=== PATIENT | female | born 1955 | race Caucasian/White ===

== ENCOUNTER 2017-10-19 10:27 | Inpatient (IN) | payer OTHER ==
--- NOTE | 2017-10-06 11:40 | HP ---
HISTORY AND PHYSICAL: DATE OF ADMISSION: 10/19/17 SURGEON: Laura Fofana MD * (DICTATED BY DANAE HERNANDEZ) PROCEDURE: Revision left total knee arthroplasty. CHIEF COMPLAINT: Left knee pain. HISTORY OF PRESENT ILLNESS: Ms. Bai is a 62-year-old female with continued complaints of a painful left total knee arthroplasty. She had it done approximately a year ago. She has had continued pain. She has failed conservative treatment and elected to proceed with revision of a left total knee arthroplasty. PAST MEDICAL HISTORY: Hypertension, hypothyroidism, hepatitis B in 1978, hepatitis C in 2004, GERD. PAST SURGICAL HISTORY: Left total knee arthroplasty; lumpectomy; tonsillectomy ; right arm ORIF with removal of hardware, right arm. CURRENT MEDICATIONS: 1. She is on levothyroxine 175 mcg daily. 2. Valsartan/hydrochlorothiazide 80/12.5 mg daily. 3. Sertraline 50 mg daily. 4. Oxybutynin chloride 5 mg twice a day. 5. Tramadol 50 mg every 6 hours as needed. 6. Flexeril 10 mg every 8 hours as needed. 7. Omeprazole daily. 8. Vitamin B12. 9. Calcium. 10. Potassium. 11. Vitamin D. 12. Vitamin C. 13. Trazodone 100 mg q.h.s. as needed. ALLERGIES: BACTRIM and DIFLUCAN. FAMILY HISTORY: Leukemia, COPD, heart disease, and prostate cancer. SOCIAL HISTORY: She is a 62-year-old female. Lives with her daughter. She does not smoke, use drugs or alcohol. REVIEW OF SYSTEMS: A complete 14-point review of systems was reviewed with the patient. It was positive for GERD, hypothyroidism, hepatitis B, hepatitis C, and vertigo. She denies history of DVT, PE, or anesthesia problems. PHYSICAL EXAMINATION GENERAL: Well developed, well nourished, in no acute distress. VITAL SIGNS: She stands 65 inches tall, weighs 165 pounds. Her blood pressure is 112/72 and her heart rate is 84. HEENT: Normocephalic, atraumatic. NECK: Supple. No palpable lymph nodes. PULMONARY: The lungs are clear to auscultation bilaterally. CARDIO: Regular rate and rhythm. Strong S1 and S2. ABDOMEN: Soft, nontender, and nondistended. MUSCULOSKELETAL: Left lower extremity, the skin is intact. There is a well- healed anterior incision. No signs of infection. She has a moderate joint effusion. Range of motion is 15 to 125 degrees of flexion. There is some patellofemoral maltracking. 5/5 lower extremity strength. 2+ dorsalis pedis pulses and intact sensation. NEUROLOGICAL: She is alert and oriented x3. ASSESSMENT AND PLAN: Ms. Bai is a 62-year-old female with a painful left total knee arthroplasty. She has elected to proceed with a revision of the left total knee arthroplasty, which is scheduled for 10/19/[address] Fofana discussed the risks and the benefits of surgery at today's visit and all of her questions were answered. She will follow up with Dr. Fofana 2 weeks after the surgery. DANAE HERNANDEZ [id number]/[facility] #: [id number] [place]
[~2017-10-19 10:27] MED LIST: Acetaminophen TAB* 325 MG PO ONE; Buffered Lidocaine 0.9% SYRIN* 5 ML/SYR SYRINGE INTRADERM ONE; Bupivacaine 0.5% PF 10 ML VIAL INJ ONE; Gabapentin CAP(*) 300 MG PO ONE; celeCOXIB CAP* 100 MG PO ONE; celeCOXIB CAP* 200 MG PO ONE
[2017-10-19] MEDS ORDERED: fentaNYL* 50 MCG/ML 2 ML VIAL (100 MCG VIAL) ONE ×5 (10:35→16:47)
[2017-10-19] MEDS ORDERED: Midazolam* 1 MG/ML 2 ML VIAL (2 MG) ONE (10:36)
[2017-10-19] MEDS ORDERED: Gabapentin CAP(*) 300 MG ONE (11:30)
[2017-10-19] MEDS ORDERED: Acetaminophen TAB* 325 MG ONE (11:30)
[2017-10-19] MEDS ORDERED: celeCOXIB CAP* 100 MG ONE (11:30)
[2017-10-19] MEDS ORDERED: ceFAZolin 2 GM PREMIX (*) 2 GM/50 ML BAG IVPB ONE (11:31)
[2017-10-19] MEDS ORDERED: Buffered Lidocaine 0.9% SYRIN* 5 ML/SYR SYRINGE ONE (11:31)
[2017-10-19] MEDS ORDERED: Tranexamic Acid 1,000 MG/10 ML SDV IV ONE ×2 (11:31→12:15)
[2017-10-19] MEDS ORDERED: Cisatracurium* 2 MG/ML MDV 5 ML ONE (12:23)
[2017-10-19] MEDS ORDERED: Bupivacaine 0.5% PF 10 ML VIAL INJ ONE (13:04)
[2017-10-19] MEDS ORDERED: HYDROmorphone INJ* 0.5 MG/0.5 ML SYRINGE ONE ×3 (13:13→17:36)
[2017-10-19] MEDS ORDERED: Labetalol IV* 5 MG/ML 20 ML VIAL ONE (13:15)
[2017-10-19] MEDS ORDERED: Dexmedetomidine* 200 MCG/2 ML 2 ML VIAL ONE (13:22)
[2017-10-19] MEDS ORDERED: Hetastarch 6% in NS* 500 ML IV ONE (14:27)
[2017-10-19] MEDS ORDERED: Succinylcholine* 20 MG/ML 10 ML VIAL ONE (15:26)
[2017-10-19] MEDS ORDERED: Famotidine IV* 10 MG/ML 2 ML (20 mg) ONE (15:26)
[2017-10-19] MEDS ORDERED: Dexamethasone IV* 4 MG/ML 1 ML (4 MG) ONE (15:26)
[2017-10-19] MEDS ORDERED: Propofol* 10 MG/ML 20 ML BTL IV PUSH ONE (15:26)
[2017-10-19] MEDS ORDERED: Lidocaine 2% PF * 5 ML VIAL ONE (15:26)
[2017-10-19] MEDS ORDERED: HYDROcodone/ACETAMIN 5-325 MG* 1 TAB PO PRN ×2 (15:33)
[2017-10-19] MEDS ORDERED: PROCHLORPERAZINE INJ 5 MG/ML 2 ML VIAL IV PRN (15:33)
[2017-10-19] MEDS ORDERED: DiMENhydriNATE IV* 50 MG/ML VIAL IV PUSH PRN (15:33)
[2017-10-19] MEDS ORDERED: fentaNYL* 50 MCG/ML 2 ML VIAL (100 MCG VIAL) IV PRN (15:33)
[2017-10-19] MEDS ORDERED: Naloxone* 0.4 MG/ML 1 ML VIAL IV PRN (15:33)
[2017-10-19] MEDS ORDERED: Ondansetron ODT TAB* 4 MG PO PRN (15:33)
[2017-10-19] MEDS ORDERED: Ondansetron INJ* 2 MG/ML VIAL IV PRN ×2 (15:33→16:19)
[2017-10-19] MEDS ORDERED: Nalbuphine* 10 MG/ML 1 ML VIAL IV PRN (15:33)
[2017-10-19] MEDS ORDERED: Acetaminophen TAB* 325 MG PO PRN ×2 (15:33→16:19)
[2017-10-19] MEDS ORDERED: diPHENhydraMINE IV* 50 MG/ML 1 ml VIAL (BENADRYL) IV PRN ×2 (15:33→16:19)
[2017-10-19] MEDS ORDERED: Ketorolac INJ* 30 MG/ML 1 ML VIAL ONE (15:38)
[2017-10-19] MEDS ORDERED: Bisacodyl SUPP* 10 MG SUPP PR PRN (16:19)
[2017-10-19] MEDS ORDERED: oxyCODONE/Acetamin 5/325 MG* TAB PO PRN (16:19)
[2017-10-19] MEDS ORDERED: Morphine VIAL* 4 MG/ML VIAL (1 ml vial) IV PRN (16:19)
[2017-10-19] MEDS ORDERED: Ondansetron TAB* 4 MG PO PRN (16:19)
[2017-10-19] MEDS ORDERED: Magnesium Hydroxide LIQ* 30 ML UDC PO PRN (16:19)
[2017-10-19] MEDS ORDERED: Polyethylene Glycol 3350* 17 GM PACKET PO PRN (16:19)
[2017-10-19] MEDS ORDERED: HYDROcodone/ACETAMIN 5-325 MG* 1 TAB ONE (16:47)
[2017-10-19] MEDS ORDERED: ceFAZolin 1 GM in Dextrose (*) 1 GM/50 ML BAG IVPB SCH (17:00)
[2017-10-19] MEDS ORDERED: Warfarin TAB(*) 6 MG PO ONE (17:00)
[2017-10-19] MEDS: fentaNYL* 50 MCG/ML 2 ML VIAL (100 MCG VIAL) IV PRN ×3 (17:07→17:35)
--- NOTE | 2017-10-19 17:18 | RAD ---
INDICATION: Left total knee arthroplasty revision COMPARISON: Intraoperative fluoroscopy from the same date TECHNIQUE: 3 view radiograph of the left knee. FINDINGS: The left knee prosthesis is anatomically aligned. Expected postsurgical changes include subcutaneous gas. There is a knee brace overlying the knee. IMPRESSION: Anatomic alignment of left knee prosthesis.
[2017-10-19] MEDS: HYDROmorphone INJ* 0.5 MG/0.5 ML SYRINGE IV PRN ×3 (17:21→17:37)
[2017-10-19] MEDS: traZODone TAB* 100 MG PO SCH (19:23)
[2017-10-19] MEDS: Cyclobenzaprine TAB* 10 MG PO PRN (19:23)
[2017-10-19] MEDS: oxyCODONE/Acetamin 5/325 MG* TAB PO PRN (19:24)
--- NOTE | 2017-10-19 20:44 | RAD ---
CPT II Codes: G9500 INDICATION: Revision of left total knee arthroplasty TECHNIQUE: Intraoperative fluoroscopy was provided during revision of total left knee arthroplasty. FINDINGS: 2 spot films depict anatomic alignment of left knee prostheses. Fluoroscopy time: 13.1 seconds IMPRESSION: As above.
[2017-10-19] MEDS: Docusate CAP* 100 MG PO SCH (22:05)
[2017-10-19] MEDS: Oxybutynin TAB* 5 MG PO SCH (22:05)
[2017-10-19] MEDS: ceFAZolin 1 GM in Dextrose (*) 1 GM/50 ML BAG IVPB SCH (22:07)
[2017-10-19] MEDS: Magnesium Hydroxide LIQ* 30 ML UDC PO SCH (22:08)
[2017-10-20] MEDS: oxyCODONE/Acetamin 5/325 MG* TAB PO PRN ×5 (00:11→21:28)
--- NOTE | 2017-10-20 01:57 | CONS ---
CC: Dr. Fofana; Dr. Nuñez, [facility]* CONSULTATION REPORT: DATE OF ADMISSION: 10/19/17. DATE OF CONSULT: 10/19/17. PRIMARY CARE PROVIDER: Dr. Nuñez from [facility]. REQUESTING PHYSICIAN IN CONSULT: Dr. Fofana. ATTENDING PHYSICIAN WHILE IN THE HOSPITAL: Dr. Suhas Magdaleno (report is being dictated by Ga Hewitt NP). REASON FOR MEDICAL CONSULTATION: Evaluation and medical management of comorbid medical conditions. HISTORY OF PRESENT ILLNESS: I refer you to Dr. Fofana's H and P dictated for further details. In short, Mrs. Bai is a 62-year-old female patient. She has a history of hypertension, hypothyroidism, GERD, hepatitis B, and hepatitis C. She is presenting to Dr. Fofana's services today because she, about a year ago, had underwent a left total knee replacement, but despite this she has had significant pain to the left knee. She has failed conservative therapy and has sought care with Dr. Fofana and she elected to undergo a left total knee revision , which she underwent today. But because of her medical complexity, we were asked to evaluate in consult. The patient was evaluated in the PACU. She said she is feeling well. She does state that she feels drowsy. She denies having any chest pain. She denies having any shortness of breath. She says she does not feel lightheaded or dizzy. She denies feeling nausea. Denies having any abdominal discomfort. She said that although she is having some pain in that left knee, but it is well controlled at this point with p.r.n. pain medications. Because of her medical complexities, we were asked to evaluate for her in consult. PAST MEDICAL HISTORY: Significant for: 1. Hypertension. 2. Hypothyroidism. 3. Hepatitis B. 4. Hepatitis C. 5. GERD. PAST SURGICAL HISTORY: 1. She has had a left total knee arthroplasty. 2. She has had a left total knee revision done today. 3. She has had a lumpectomy, which was benign. 4. Tonsillectomy. 5. Right arm ORIF with removal of hardware. MEDICATIONS: Home meds according to preop include: 1. Vitamin B12 5000 units p.o. daily. 2. Valsartan/hydrochlorothiazide 1 tablet daily. 3. Trazodone 1 tablet at bedtime. 4. Tramadol 1 tablet p.o. t.i.d. as needed. 5. Zoloft 1 tablet in the morning. 6. Potassium 1 tablet p.o. daily. 7. Oxybutynin 5 mg p.o. b.i.d. 8. Omeprazole 1 capsule p.o. daily. 9. Meclizine 1 tablet every 8 hours as needed. 10. Magnesium 1 tablet p.o. daily. 11. Synthroid 1 tablet p.o. daily. 12. Flexeril 1 tablet t.i.d. as needed. 13. Vitamin D3 one tablet p.o. daily. 14. Calcium 600 mg daily. 15. Vitamin C one tablet p.o. daily. ALLERGIES TO MEDICATIONS: Include BACTRIM and DIFLUCAN. FAMILY HISTORY: Mother had a history of leukemia. Father had a history of COPD. SOCIAL HISTORY: She does not smoke. She does not drink. Surrogate decision maker is her daughter, Deysi. REVIEW OF SYSTEMS: There is no documented fevers. She denies having any significant weight change. She denies having any abdominal discomfort. There is no ear discharge. No rhinorrhea. No sore throat. No thyroid enlargement. She denies having any chest pain. There is no orthopnea. There is no nocturnal dyspnea. She denies having any abdominal discomfort. There is no dysuria. No frequency. No seizure. No loss of consciousness. No pruritus and no skin ulcerations. Review of 14 systems was completed, all others are negative. PHYSICAL EXAM: Vital Signs: Blood pressure 112/62, pulse 74, respirations were 14, O2 sat 96% on 3 L, temperature 97.0. Generally, at this time, Mrs. Bai is a 62-year-old female patient. She is sitting in the PACU bed. She does not appear to be in any acute distress. HEENT: Head: Atraumatic, normocephalic. Eyes: EOMs are intact. Sclerae anicteric and not pale. Neck was supple. Throat: Oral mucosa appears to be moist. No oropharyngeal erythema. Heart: Sounds S1, S2. Regular rate and rhythm. No murmurs, rubs, or gallops. Lungs were clear to auscultation. No wheezes, rales, or rhonchi. Abdomen was soft and was flat. It was nontender. Bowel sounds hypoactive. Extremities: Pulses were 2+ throughout. She has limited range of motion to the left lower extremity consistent with the operative leg. The distal CSM checks were intact. Neurologically, the patient is awake. She is alert. She is oriented x3. The tongue is midline. Route Cdl Driver were equal. She had no gross focal deficits. Skin is intact. DIAGNOSTIC STUDIES/LAB DATA: Preop, WBC of 8.0, RBC of 4.52, hemoglobin of 14.3 , hematocrit of 41, platelet count 224. The INR was 0.94. The sodium 138, potassium 3.8, chloride of 101, bicarb 28, BUN 17, creatinine 0.79, glucose 84, AST 17, ALT 14. Urine was obtained and was preoperatively again negative. She did have a preop chest x-ray, which revealed no active cardiopulmonary disease. She also had a preoperative EKG as well, which showed normal sinus rhythm, rate of 67. No ST elevations or T-wave inversions were noted. Old medical records were reviewed. ASSESSMENT AND PLAN: Mrs. Bai is a 62-year-old female patient coming in to the orthopedic services today for an elective left total knee revision. We were asked to evaluate in consult. Recommendations at this point are: 1. Status post left total knee revision. I will defer the management to Dr. Fofana and her team. 2. Hypertension. Postoperatively, she has been running in the 110s. We will go ahead and hold her hydrochlorothiazide and Diovan. We will restart when able. We will monitor. 3. History of hepatitis C and hepatitis B. Follow with her PCP. 4. History of hypothyroidism. Continue her Synthroid. 5. History of depression. Continue with her Zoloft. 6. Gastroesophageal reflux disease. Continue PPI therapy and supportive care. 7. History of overactive bladder. Continue with her oxybutynin. 8. Code status: She is a full code. 9. Fluids, electrolytes and nutrition: I would recommend a regular diet. 10. DVT prophylaxis: I will defer to the primary team. TIME SPENT: Time spent on the consult 60 minutes; greater than half the time was spent [id number] with the patient obtaining my history and physical, other half of the time spent going over the plan of care with the patient and implementing plan of care. I did discuss the plan of care with my attending, Dr. Magdaleno; he is in agreement. AG HEWITT NP [id number]/[facility] #: [id number] [place]
[2017-10-20] MEDS: Cyclobenzaprine TAB* 10 MG PO PRN ×2 (03:39→12:46)
[2017-10-20 05:49] LABS: Hematocrit 30 % (35-47); Hemoglobin 10.4 g/dl (12.0-16.0); Mean Platelet Volume 8.5 um3 (7.4-10.4); Platelet Count 163 10^3/ul (150-450)
[2017-10-20 05:55] LABS: INR 1.07 (0.77-1.02)
[2017-10-20] MEDS: Levothyroxine TAB* 175 MCG TAB PO SCH (06:04)
[2017-10-20] MEDS: ceFAZolin 1 GM in Dextrose (*) 1 GM/50 ML BAG IVPB SCH ×2 (06:05→13:47)
[2017-10-20 06:06] LABS: EGFR Non-African American 103.3 (>60)
--- NOTE | 2017-10-20 07:42 | OP ---
OPERATIVE REPORT: DATE OF OPERATION: 10/19/17 - Inpatient, room SSU 342-02. DATE OF : 55 SURGEON: Laura Fofana MD ENGINEERING OFFICER: DANAE Liriano Ms. did help throughout the procedure with preparation of the leg, wound retraction, manipulation of the knee and wound closure. ANESTHESIOLOGIST: Dr. Schafer. ANESTHESIA: General. PRE-OP DIAGNOSIS: Painful left total knee arthroplasty with tibial baseplate loosening and flexion contracture. POST-OP DIAGNOSIS: Painful left total knee arthroplasty with tibial baseplate loosening and flexion contracture. OPERATIVE PROCEDURE: Left total knee arthroplasty revision of both femoral and tibial components. TOURNIQUET TIME: 81 minutes. COMPLICATIONS: None. SPECIMEN: Explanted hardware sent to Pathology. Multiple culture swabs and soft tissue sent to Microbiology for cultures and sensitivities. Frozen section was also sent at the beginning of the case and was noted to have no signs of active inflammation or infection. HARDWARE USED: This is the DePuy cemented revision total knee arthroplasty implants. Two packages of Simplex cement with tobra was used. For the femur, a cemented TC3 size 3 left femur with an adapter bolt in neutral. Two distal augments both medial and lateral were 4 mm. A universal fluted stem 75 x 12 mm was used. For the tibial implant, MBT revision tibial tray rotating platform system cemented size 2.5 with a 45 mm MBT revision metaphyseal sleeve. Stem was a universal stem fluted 75 x 10 mm. For the insert, a rotating platform TC3 tibial insert size 3, 12.5 mm. BRIEF HISTORY/INDICATIONS: The patient is a 62-year-old female who had injured her left knee in 2011 working at [employer]. She initially had arthroscopy and eventually left total knee arthroplasty with Dr. España in [place] in August 2016. Postoperatively, the patient denies any postop infection. She had stiffness and lacked at least 20 degrees from full extension. She had chronic pain. She had chronic effusions and difficulty walking. The patient had lab work, which did not indicate infection. On her radiograph, I felt there was some mild tibial loosening and bone scan did support this. Due to the patient's pain and contracture, she wished to undergo revision surgery. Patient and I discussed at length the fact that revision surgery at age 62 would be high risk for complications including but not limited to bleeding, infection, damage to nearby structures, continued pain, need for further surgery, intraoperative fracture, nerve palsy, failure of the hardware or loosening of the hardware, continued knee stiffness, loss of motion, stroke, heart attack, blood clot, and . She wished to proceed. INTRAOPERATIVE FINDINGS: Intraoperatively, the patient had some serosanguineous joint fluid. This was collected and sent to Microbiology. The tibial tray was not grossly loose. The medial tibial tray platform did have some obvious osteolysis. Posteromedial tibia had significant amount of bone loss once the implant was removed. To begin the case, the patient had 25 degrees flexion contracture with flexion to 130 degrees. DESCRIPTION OF PROCEDURE: Ms. Bai was identified in the preanesthesia unit. Her left lower extremity was marked as the correct operative side. Informed consent was signed and placed in the chart. The patient was taken to the operating room and placed under general anesthesia. A Conde catheter was placed. A tourniquet was placed on the left thigh. Left lower extremity was prepped and draped in the usual sterile fashion. Preop time-out was made to correctly identify the patient's side and site. Appropriate perioperative antibiotics were given within 1 hour of incision. Tourniquet was inflated until tourniquet time was 81 minutes. Patient's prior midline incision was opened with a 10 blade. Careful dissection down to the extensor mechanism was performed. A new 10 blade was used to make a standard medial parapatellar arthrotomy. There was some serosanguineous joint fluid and this was collected and sent to Microbiology. Multiple culture swabs were obtained. Soft tissue was obtained and sent for frozen section to ensure there was no active infection. Prior labs had all been normal and without any indication of infection. Any fibrous tissue and scar tissue was carefully removed from around the inside capsule and patellar tendon. The knee was flexed. Electrocautery was used to subperiosteally elevate soft tissue off the superomedial tibia. The polyethylene was carefully removed. The small microsagittal saw was then used to meticulously break the interface between the hardware and cement along the femoral component. There was no obvious loosening here. Thin and rigid osteotomes were also used in a systematic fashion to break the interface between the cement and hardware. A bone tamp was then used to carefully remove the femoral component. Very little bone remained on the femoral implant. There was some osteolysis around the lateral femoral condyle region. Next, the tibia was subluxed anteriorly. It was noted that there was some loosening along the medial tibial baseplate, but the lateral tibial baseplate was solid and intact. The microsagittal saw as well as the rigid and flexible osteotomes were used to systematically loosen the interface between the hardware and cement. Bone tamp was used to elevate the tibial tray. The tibial tray was carefully removed. There was some significant osteolysis along the posteromedial tibial region. Decision was made to use a metaphyseal sleeve because of the posteromedial tibial bone loss. Hand reaming up to size 10 was performed in the tibial canal. Next, sequential broaching with metaphyseal sleeve broaches was performed up to size 45. 45 metaphyseal sleeve broach had excellent fit and stability. A cleanup cut was made on the top of the broach. The tibia was sized to a size 2.5. The proximal opening reamer was placed down the canal. A size 2.5 tibial tray trial with a 45 metaphyseal sleeve trial and a 75 x 10 stem trial was placed. This was impacted into position and had excellent fit. Next, attention was turned to preparation of the femur. Tourniquet was turned down at 60 minutes. It was reinflated for cementing. Hand reaming was performed up to a size 12. The distal cutting block sized the distal femur to a size 3. Size 3 distal cutting block was used to make any cleanup cuts. It was decided that there would be distal augments both medially and laterally of 4 mm. The appropriate jig was used to cut the box for the TC3 femoral implants. A trial size 3 TC3 femoral implant side left was chosen with a neutral adapter bolt and a 75 x 12 mm fluted stem. This trial was carefully impacted on to the distal femur and had good fit. A 12.5 insert trial was placed and the knee was brought into full extension. The knee had full extension. There was good medial and lateral ligamentous balancing. The patella was inspected at this point. The patella was stable and in a good position. Patellofemoral tracking was without abnormality. Any fibrous tissue around the patella was carefully removed. Tourniquet was reinflated. All trials were carefully removed. The bony surfaces were copiously irrigated with sterile saline and dried. Two packages of Simplex cement with tobramycin was used to cement in the final implants. The tibia was cemented in first followed by the femur. A 12.5 mm insert trial was placed and the knee was brought into full extension. Tourniquet was turned down at 81 minutes. Once the cement had fully cured, any excess cement was carefully removed from around the capsule and implants. The knee was copiously irrigated with sterile saline. Electrocautery was used to obtain meticulous hemostasis. Final insert chosen was a sigma tibial insert rotating platform TC3 size 3, 12.5 mm. This was locked into position and the knee was taken through range of motion. The knee had full extension to 130 degrees of flexion. The knee was copiously irrigated with sterile saline once again. The extensor mechanism was closed using interrupted #1 Vicryl. The rest of the incision was closed in a layered fashion using 0 and 2-0 Vicryl. Skin was closed using running 3-0 nylon suture. Sterile Xeroform, 4x4s, and Webril were used to cover the incision. Patient's anesthesia was reversed without difficulty. She was taken to the PACU in stable condition. Intended weightbearing will be weightbearing as tolerated. Intended DVT prophylaxis will be Coumadin with a Lovenox bridge. [id number]/[facility] #: [id number] [place]
[2017-10-20] MEDS: oxyCODONE TAB* 5 MG TAB PO PRN ×4 (08:47→23:29)
[2017-10-20] MEDS ORDERED: HCTZ PO SCH (09:00)
[2017-10-20] MEDS ORDERED: VALSARTAN PO SCH (09:00)
--- NOTE | 2017-10-20 09:05 | PN ---
Progress Note - Progress Note Date of Service: 10/20/17 SOAP: Subjective: Ms. Bai is a 62 yo female POD#1 s/p revision of left TKA on 10/19/[address] Fofana. She is seen with daughter, who lives with patient. Patient sitting comfortably in chair. States less pain than prior to surgery. She and daughter are concerned about pain management after discharge as well as ability to ambulate. She did well with PT this morning but would like to progress further before discharge. No CP, SOB, FIGUEROA, calf pain, numbness, tingling, nausea/vomiting. Objective: Vital Signs Temp 98.2 F 10/20/17 07:18 Pulse 70 10/20/17 07:18 Resp 16 10/20/17 08:47 BP 111/48 10/20/17 07:18 Pulse Ox 98 10/20/17 07:18 Intake & Output 10/19/17 10/20/17 10/20/17 18:59 06:59 18:59 Intake Total 3000 1400 546 Output Total 125 820 Balance 2875 580 546 Intake: IV Fluids 2500 990 371 LR 990 371 lr 2500 IVPB 50 55 ABX - CEFAZOLIN 50 55 Oral 360 120 Plasma Expanders Amount 500 Output: Conde 125 820 Other: # Bowel Movements 0 Laboratory Results - last 24 hr 10/20/17 10/20/17 10/20/17 05:20 05:20 05:20 Hgb 10.4 L Hct 30 L Plt Count 163 MPV 8.5 INR (Anticoag Therapy) 1.07 H Sodium 137 Potassium 4.3 Chloride 105 Carbon Dioxide 29 Anion Gap 3 BUN 14 Creatinine 0.59 Est GFR ( Amer) 125.0 Est GFR (Non-Af Amer) 103.3 BUN/Creatinine Ratio 23.7 H Glucose 144 H Calcium 8.0 L General: WN, WD, NAD LLE: Dressing C/D/I. No erythema, ecchymosis, or warmth proximal or distal to dressing. Thigh soft with slight tenderness, mild edema. Calf soft, non-tender. +DF/PF, 2+ DP pulse, SITLT. Assessment: Ms. Bai is a 62 yo female POD#1 s/p revision of left TKA on 10/19/[address] Fofana. Plan: - Continue PT/OT - Continue current pain regiment - DVT prophylaxis with Lovenox/Coumadin. INR today 1.07 after 6 mg coumadin. 6 mg Coumadin tonight. - Plan to d/c home tomorrow if pain better controlled and continues to progress with PT.
[2017-10-20] MEDS: Sertraline* 50 MG TAB PO SCH (09:27)
[2017-10-20] MEDS: Docusate CAP* 100 MG PO SCH ×2 (09:27→21:29)
[2017-10-20] MEDS: Magnesium Hydroxide LIQ* 30 ML UDC PO SCH ×2 (09:27→21:30)
[2017-10-20] MEDS: Omeprazole CAP* 20 MG PO SCH (09:27)
[2017-10-20] MEDS: Oxybutynin TAB* 5 MG PO SCH ×2 (09:28→21:29)
[2017-10-20] MEDS: Enoxaparin(*) 30 MG/0.3 ML SYR SUBCUT SCH (12:47)
[2017-10-20] MEDS ORDERED: Warfarin TAB(*) 6 MG PO ONE (17:00)
--- NOTE | 2017-10-20 17:11 | PN ---
Subjective Date of Service: 10/20/17 Interval History: Patient seen and examined at bedside. Denies fever, chills, shortness of breath , chest discomfort, N/V/D. Pt states that she is having a fair amount of pain. Family History: Unchanged from Admission Social History: Unchanged from Admission Past Medical History: Unchanged from Admission Objective Active Medications: Acetaminophen (Tylenol Tab*) 650 mg PO Q4H PRN Reason: PAIN OR TEMPERATURE Bisacodyl (Dulcolax Supp*) 10 mg [place] DAILY PRN Reason: constipation Cyclobenzaprine HCl (Flexeril Tab*) 10 mg PO TID PRN Reason: SPASMS Diphenhydramine HCl (Benadryl Iv*) 12.5 mg IV Q6H PRN Reason: PRURITIS Docusate Sodium (Colace Cap*) 100 mg PO BID REGINALD Enoxaparin Sodium (Lovenox(*)) 30 mg SUBCUT Q24H REGINALD Lactated Ringer's (Lactated Ringers 1000 Ml Bag*) 1,000 mls @ 100 mls/hr IV PER RATE REGINALD Lactulose (Lactulose*) 30 ml PO Q6H PRN Reason: constipation Levothyroxine Sodium (Synthroid Tab*) 175 mcg PO QAM@0600 REGINALD Magnesium Hydroxide (Milk Of Magnesia Liq*) 30 ml PO BID REGINALD Magnesium Hydroxide (Milk Of Magnesia Liq*) 30 ml PO Q6H PRN Reason: constipation Morphine Sulfate (Morphine Vial*) 2 mg IV Q2H PRN Reason: PAIN Omeprazole (Prilosec Cap*) 20 mg PO QAM REGINALD Ondansetron HCl (Zofran Inj*) 4 mg IV Q6H PRN Reason: nausea Ondansetron HCl (Zofran Tab*) 4 mg PO Q6H PRN Reason: NAUSEA Oxybutynin Chloride (Ditropan Tab*) 5 mg PO BID REGINALD Oxycodone HCl (Roxycodone Tab*) 10 mg PO Q4H PRN Reason: SEVERE PAIN Oxycodone/Acetaminophen (Percocet 5/325 Tab*) 2 tab PO Q4H PRN Reason: PAIN Oxycodone/Acetaminophen (Percocet 5/325 Tab*) 1 tab PO Q4H PRN Reason: PAIN Pharmacy Profile Note (Coumadin Daily Reminder*) 0 note FOLLOW UP 1700 REGINALD Polyethylene Glycol/Electrolytes (Miralax*) 17 gm PO DAILY PRN Reason: Constipation Sertraline HCl (Zoloft*) 50 mg PO QAM [facility] Trazodone HCl (Desyrel Tab*) 100 mg PO QPM [facility] Vital Signs - 8 hr 10/20/17 10/20/17 10/20/17 09:30 10:50 10:54 Temperature Pulse Rate Respiratory 16 16 16 Rate Blood Pressure (mmHg) O2 Sat by Pulse 98 Oximetry 10/20/17 10/20/17 10/20/17 11:10 12:46 12:57 Temperature 98.1 F Pulse Rate 77 Respiratory 16 16 16 Rate Blood Pressure 131/47 (mmHg) O2 Sat by Pulse 96 Oximetry 10/20/17 10/20/17 10/20/17 14:50 15:40 17:03 Temperature Pulse Rate Respiratory 16 16 16 Rate Blood Pressure (mmHg) O2 Sat by Pulse Oximetry Oxygen Devices in Use Now: None Appearance: NAD, sitting up in bed Ears/Nose/Mouth/Throat: Mucous Membranes Moist Respiratory: Symmetrical Chest Expansion and Respiratory Effort, Clear to Auscultation Cardiovascular: NL Sounds; No Murmurs; No JVD, RRR Abdominal: NL Sounds; No Tenderness; No Distention Extremities: No Edema Skin: - - Dressing to left knee clean, dry and intact Neurological: Alert and Oriented x 3, NL Muscle Strength and Tone Lines/Tubes/Other Access: Clean, Dry and Intact Peripheral IV - site benign Nutrition: Taking PO's Result Diagrams: 10/20/17 05:20 10/20/17 05:20 Microbiology and Other Data: Microbiology 10/19/17 13:10 Anaerobic Culture - Preliminary Wound - Knee Left No Growth Day 1 10/19/17 13:10 Gram Stain - Final Knee Left Wound Culture - Preliminary No Growth Day 1 Assess/Plan/Problems-Billing Assessment: - Patient Problems (1) Status post revision of total replacement of left knee Code(s): Z96.652 - PRESENCE OF LEFT ARTIFICIAL KNEE JOINT SNOMED Code(s): 838701598263148 Comment: - POD #1, Management per Ortho - Trend HH - Continue bowel regimen and pain control (2) HTN (hypertension) Code(s): I10 - ESSENTIAL (PRIMARY) HYPERTENSION SNOMED Code(s): 13190318 Comment: - SBP 100-130's - Continue to hold Diovan and HCTZ, will resume in the AM if able (3) Hypothyroidism Code(s): E03.9 - HYPOTHYROIDISM, UNSPECIFIED SNOMED Code(s): 86522390 Comment: - Continue Synthroid (4) Depression Code(s): F32.9 - MAJOR DEPRESSIVE DISORDER, SINGLE EPISODE, UNSPECIFIED SNOMED Code(s): 52386106 Comment: - Continue Zoloft (5) GERD (gastroesophageal reflux disease) Code(s): K21.9 - GASTRO-ESOPHAGEAL REFLUX DISEASE WITHOUT ESOPHAGITIS SNOMED Code(s): 224616349 Comment: - Continue PPI (6) OAB (overactive bladder) Code(s): N32.81 - OVERACTIVE BLADDER SNOMED Code(s): 655227459 Comment: - Continue oxybutynin (7) History of hepatitis Code(s): Z86.19 - PERSONAL HISTORY OF OTHER INFECTIOUS AND PARASITIC DISEASES SNOMED Code(s): 216335139 Comment: - Hep C and B - Continue to follow with PCP (8) DVT prophylaxis Code(s): WPT0041 - SNOMED Code(s): 191964776 Comment: - Lovenox bridge to warfarin per Ortho (9) Full code status Code(s): Z78.9 - OTHER SPECIFIED HEALTH STATUS SNOMED Code(s): 912152925 Status and Disposition: Inpatient. Disposition per Orthopedic Surgery. Thank you for this consultation, we will continue to follow along.
[2017-10-20] MEDS: traZODone TAB* 100 MG PO SCH (21:30)
[2017-10-21] MEDS: oxyCODONE/Acetamin 5/325 MG* TAB PO PRN ×3 (01:41→13:47)
[2017-10-21] MEDS: Cyclobenzaprine TAB* 10 MG PO PRN ×2 (01:43→11:12)
[2017-10-21] MEDS: oxyCODONE TAB* 5 MG TAB PO PRN ×2 (03:35→08:21)
[2017-10-21] MEDS: Levothyroxine TAB* 175 MCG TAB PO SCH (05:44)
[2017-10-21 06:15] LABS: Hematocrit 32 % (35-47); Hemoglobin 11.2 g/dl (12.0-16.0); Mean Platelet Volume 8.8 um3 (7.4-10.4); Platelet Count 192 10^3/ul (150-450)
[2017-10-21 06:23] LABS: INR 1.37 (0.77-1.02)
[2017-10-21] MEDS: Oxybutynin TAB* 5 MG PO SCH (08:20)
[2017-10-21] MEDS: Sertraline* 50 MG TAB PO SCH (08:20)
[2017-10-21] MEDS: Docusate CAP* 100 MG PO SCH (08:20)
[2017-10-21] MEDS: Magnesium Hydroxide LIQ* 30 ML UDC PO SCH (08:21)
[2017-10-21] MEDS: Omeprazole CAP* 20 MG PO SCH (08:21)
[2017-10-21 12:01] VITALS: BP 112/63
[2017-10-21] MEDS: Enoxaparin(*) 30 MG/0.3 ML SYR SUBCUT SCH (12:14)
--- NOTE | 2017-10-21 12:14 | PN ---
Progress Note - Progress Note Date of Service: 10/21/17 SOAP: Subjective: Pt is doing well. Pain is controlled with oral percocet. Progressing well with PT. Denies CP/SOB, F/C. Manish BM is passing flatus Objective: PE: 62 y/o WDWN F NAD< A&O x 3 LLE- dressing changed, inc c/d/i with no sign of infection, +DF/PF ankle, +2 Dp pulse, SILT distally Vital Signs Temp Pulse Resp BP Pulse Ox 98.4 F 92 17 112/63 96 10/21/17 11:22 10/21/17 11:22 10/21/17 11:22 10/21/17 11:22 10/21/17 11:22 Laboratory Results - last 24 hr 10/21/17 10/21/17 05:41 05:41 Hgb 11.2 L Hct 32 L Plt Count 192 MPV 8.8 INR (Anticoag Therapy) 1.37 H Assessment: POD 2 s/p left revision TKA Plan: WBAT LLE cont PT/OT DC to home with outpt PT and blood draws Cont coumadin for DVT prophylaxis, percocet and cyclobenzaprine for pain and colace for constipation Instructed to call or try suppository if no BM in 48 hours F/U 10-14 days post op
--- NOTE | 2017-10-21 13:21 | PN ---
Subjective Date of Service: 10/21/17 Interval History: Patient seen and examined at bedside. Denies fever, chills, shortness of breath , chest discomfort, N/V/D. Family History: Unchanged from Admission Social History: Unchanged from Admission Past Medical History: Unchanged from Admission Objective Active Medications: Acetaminophen (Tylenol Tab*) 650 mg PO Q4H PRN Reason: PAIN OR TEMPERATURE Bisacodyl (Dulcolax Supp*) 10 mg [place] DAILY PRN Reason: constipation Cyclobenzaprine HCl (Flexeril Tab*) 10 mg PO TID PRN Reason: SPASMS Diphenhydramine HCl (Benadryl Iv*) 12.5 mg IV Q6H PRN Reason: PRURITIS Docusate Sodium (Colace Cap*) 100 mg PO BID REGINALD Enoxaparin Sodium (Lovenox(*)) 30 mg SUBCUT Q24H REGINALD Lactated Ringer's (Lactated Ringers 1000 Ml Bag*) 1,000 mls @ 100 mls/hr IV PER RATE REGINALD Lactulose (Lactulose*) 30 ml PO Q6H PRN Reason: constipation Levothyroxine Sodium (Synthroid Tab*) 175 mcg PO QAM@0600 REGINALD Magnesium Hydroxide (Milk Of Magnesia Liq*) 30 ml PO BID REGINALD Magnesium Hydroxide (Milk Of Magnesia Liq*) 30 ml PO Q6H PRN Reason: constipation Morphine Sulfate (Morphine Vial*) 2 mg IV Q2H PRN Reason: PAIN Omeprazole (Prilosec Cap*) 20 mg PO QAM REGINALD Ondansetron HCl (Zofran Inj*) 4 mg IV Q6H PRN Reason: nausea Ondansetron HCl (Zofran Tab*) 4 mg PO Q6H PRN Reason: NAUSEA Oxybutynin Chloride (Ditropan Tab*) 5 mg PO BID REGINALD Oxycodone HCl (Roxycodone Tab*) 10 mg PO Q4H PRN Reason: SEVERE PAIN Oxycodone/Acetaminophen (Percocet 5/325 Tab*) 2 tab PO Q4H PRN Reason: PAIN Oxycodone/Acetaminophen (Percocet 5/325 Tab*) 1 tab PO Q4H PRN Reason: PAIN Pharmacy Profile Note (Coumadin Daily Reminder*) 0 note FOLLOW UP 1700 [facility] Polyethylene Glycol/Electrolytes (Miralax*) 17 gm PO DAILY PRN Reason: Constipation Sertraline HCl (Zoloft*) 50 mg PO QAM REGINALD Trazodone HCl (Desyrel Tab*) 100 mg PO QPM [facility] Vital Signs - 8 hr 10/21/17 10/21/17 10/21/17 05:35 07:22 08:21 Temperature 98.3 F Pulse Rate 73 Respiratory 18 17 18 Rate Blood Pressure 104/57 (mmHg) O2 Sat by Pulse 93 Oximetry 10/21/17 10/21/17 10/21/17 08:30 11:12 11:22 Temperature 98.4 F Pulse Rate 92 Respiratory 18 16 17 Rate Blood Pressure 112/63 (mmHg) O2 Sat by Pulse 93 96 Oximetry Oxygen Devices in Use Now: None Appearance: NAD, sitting up in a chair Ears/Nose/Mouth/Throat: Mucous Membranes Moist Respiratory: Symmetrical Chest Expansion and Respiratory Effort, Clear to Auscultation Cardiovascular: NL Sounds; No Murmurs; No JVD, RRR Abdominal: NL Sounds; No Tenderness; No Distention Extremities: No Edema Skin: No Rash or Ulcers Neurological: Alert and Oriented x 3, NL Muscle Strength and Tone Lines/Tubes/Other Access: Clean, Dry and Intact Peripheral IV - site benign Nutrition: Taking PO's Result Diagrams: 10/21/17 05:41 10/20/17 05:20 Microbiology and Other Data: Microbiology 10/19/17 13:10 Anaerobic Culture - Preliminary Wound - Knee Left No Growth Day 1 10/19/17 13:10 Gram Stain - Final Knee Left Wound Culture - Preliminary No Growth Day 1 Assess/Plan/Problems-Billing Assessment: - Patient Problems (1) Status post revision of total replacement of left knee Code(s): Z96.652 - PRESENCE OF LEFT ARTIFICIAL KNEE JOINT SNOMED Code(s): 634417831882975 Comment: - POD #2, Management per Ortho - HH stable - Continue bowel regimen and pain control (2) HTN (hypertension) Code(s): I10 - ESSENTIAL (PRIMARY) HYPERTENSION SNOMED Code(s): 94404337 Comment: - SBP 100-110's - Continue to hold Diovan and HCTZ, resume outpatient when able (3) Hypothyroidism Code(s): E03.9 - HYPOTHYROIDISM, UNSPECIFIED SNOMED Code(s): 38649535 Comment: - Continue Synthroid (4) Depression Code(s): F32.9 - MAJOR DEPRESSIVE DISORDER, SINGLE EPISODE, UNSPECIFIED SNOMED Code(s): 30107018 Comment: - Continue Zoloft (5) GERD (gastroesophageal reflux disease) Code(s): K21.9 - GASTRO-ESOPHAGEAL REFLUX DISEASE WITHOUT ESOPHAGITIS SNOMED Code(s): 111147493 Comment: - Continue PPI (6) OAB (overactive bladder) Code(s): N32.81 - OVERACTIVE BLADDER SNOMED Code(s): 280514505 Comment: - Continue oxybutynin (7) History of hepatitis Code(s): Z86.19 - PERSONAL HISTORY OF OTHER INFECTIOUS AND PARASITIC DISEASES SNOMED Code(s): 276029839 Comment: - Hep C and B - Continue to follow with PCP (8) DVT prophylaxis Code(s): [id number] - SNOMED Code(s): 491847290 Comment: - Lovenox bridge to warfarin per Ortho (9) Full code status Code(s): Z78.9 - OTHER SPECIFIED HEALTH STATUS SNOMED Code(s): 403073399 Status and Disposition: Inpatient. Disposition per Orthopedic Surgery. Plan for discharge to home later today. Thank you for this consultation, we will sign off at this time.
--- NOTE | 2017-10-21 16:11 | DS ---
DISCHARGE SUMMARY: DATE OF ADMISSION: 10/19/17 DATE OF DISCHARGE: 10/21/17 PROVIDER: Dr. Laura Fofana.* (DICTATED BY DANAE VILLALOBOS) ADMITTING DIAGNOSIS: Painful left total knee arthroplasty. SECONDARY DIAGNOSES: 1. Hypertension. 2. Hypothyroidism. 3. Hepatitis B in 1978. 4. Hepatitis C in 2004. 5. Gastroesophageal reflux disease. CONSULTATIONS: PT, OT, Medicine. HISTORY OF PRESENT ILLNESS: Ms. Bai is a 62-year-old female, who presented to the clinic with a painful left total knee arthroplasty. She had continued pain and failed conservative treatment. Therefore, elected to undergo a revision left total knee arthroplasty with Dr. Fofana on 10/19/17. HOSPITAL COURSE: The patient was admitted to [facility] on 10/19/17. She underwent a revision left total knee arthroplasty. Postoperatively, she recovered on the short- stay surgical unit. On postop day 1, the Conde was removed. She was able to urinate on her own. She was advanced to a regular diet without difficulty and the pain was controlled with oral pain medication. She was restarted on home medications. Her labs and vitals remained stable. She was able to weight bear as tolerated on the left lower extremity. She advanced appropriately with PT and OT. DVT prophylaxis was managed with Lovenox and Coumadin until she reached a therapeutic INR. By postop day 2, she was orthopedically and medically stable for discharge to home with outpatient physical therapy and INR draws. DISCHARGE CONDITION: Stable. DISCHARGE MEDICATIONS: Home medications continued at discharge to include: 1. Magnesium 400 mg 1 tab by mouth in the morning. 2. Vitamin C 1000 mg 1 tab in the morning. 3. Vitamin D3 one tab in the morning. 4. Calcium 600 mg 1 by mouth in the morning. 5. Potassium 99 mg 1 by mouth in the morning. 6. Vitamin B12 5000 units 1 by mouth in the morning. 7. Tramadol 50 mg 1 by mouth 3 times a day as needed. 8. Omeprazole 20 mg 1 by mouth in the morning. 9. Zoloft 50 mg 1 by mouth in the morning. 10. Oxybutynin 5 mg by mouth 2 times a day. 11. Hydrochlorothiazide and valsartan 1 tab by mouth in the morning. 12. Trazodone 100 mg 1 by mouth in the evening. 13. Levothyroxine 175 mcg 1 by mouth in the morning. 14. Cyclobenzaprine 10 mg 1 by mouth 3 times a day as needed. 15. Meclizine 1 tab every 8 hours as needed. New medications on discharge to include: 1. Colace 100 mg 1 tab 3 times a day as needed for constipation. 2. Percocet 5/325 one to two every 4 to 6 hours, MDD of 10, for pain as needed. 3. Coumadin 2 mg tablet 1 to 5 daily as directed by doctor. DISCHARGE INSTRUCTIONS: She is weight bearing as tolerated on the left lower extremity. It is okay for her to shower postop day 3, no submerging the wound, redress with gauze, Alberto wrap, and tape. She should call the office with increased drainage, redness, increased pain or fever greater than 101.5, and go to the ER with chest pain or shortness of breath. She should eat a regular diet with increased fluids and fiber to prevent constipation and use stool softeners. If she does not have a bowel movement within 48 hours, she should use an [id number] suppository and call if no bowel movement after that. She is to go to the ER with increased abdominal pain with bloating and inability to pass gas. She should continue physical therapy and occupational therapy as shown and will do outpatient physical therapy. INR draws on Monday and . INR dosing: On 10/21/17 is 8 mg, 10/22/17 is 8 mg, 10/23/17 redraw INR. She should avoid taking aspirin, Excedrin, Aleve, or ibuprofen while on Coumadin. She should use Colace 3 times a day for constipation while on the Percocet. Pain control: With Percocet, MDD of 10, do not exceed 4000 mg of Tylenol daily and she should take cyclobenzaprine 3 times a day as needed for pain. She will require antibiotics prior to any dental work in the future and she will follow up with Dr. Fofana within 10 to 14 days; she should call for an appointment. DANAE VILLALOBOS [id number]/[facility] #: [id number] [facility] HOSPITALAlexandra
== END 2017-10-21 15:30 | disposition home or self-care (01) | DRG 302 ==
LOC: AA 10:27 → SSU 18:25
PROVIDERS: ADMIT Orthopaedic Surgery Adult Reconstructive Orthopaedic Surgery; ATTEND Internal Medicine
PROC: 0SRD0J9 Replacement of Left Knee Joint with Synthetic Substitute, Cemented, Open Approach (ICD-10-PCS; 2017-10-19)
PROC: 0SPD0JZ Removal of Synthetic Substitute from Left Knee Joint, Open Approach (ICD-10-PCS; principal; 2017-10-19 12:00)
DX: T84.84XA Pain due to internal orthopedic prosthetic devices, implants and grafts, initial encounter (principal); Y79.2 Prosthetic and other implants, materials and accessory orthopedic devices associated with adverse incidents; M25.462 Effusion, left knee; I10 Essential (primary) hypertension; E03.9 Hypothyroidism, unspecified; K21.9 Gastro-esophageal reflux disease without esophagitis; F32.9 Major depressive disorder, single episode, unspecified; N32.81 Overactive bladder; M89.562 Osteolysis, left lower leg; G89.29 Other chronic pain; F41.9 Anxiety disorder, unspecified; G43.909 Migraine, unspecified, not intractable, without status migrainosus; M81.0 Age-related osteoporosis without current pathological fracture; M54.30 Sciatica, unspecified side; M24.562 Contracture, left knee; Z86.19 Personal history of other infectious and parasitic diseases; Z88.6 Allergy status to analgesic agent; Z88.3 Allergy status to other anti-infective agents; Y92.009 Unspecified place in unspecified non-institutional (private) residence as the place of occurrence of the external cause; Z80.42 Family history of malignant neoplasm of prostate; Z82.5 Family history of asthma and other chronic lower respiratory diseases; Z80.6 Family history of leukemia; Z82.49 Family history of ischemic heart disease and other diseases of the circulatory system; Z79.01 Long term (current) use of anticoagulants
CPT/HCPCS: 36415; 76000; 80048; 85014; 85018; 85049; 85610; 87070; 87073; 87205; A9270-GY; G8987-GO-CI; G8988-GO-CI; G8989-GO-CI; J0330; J0690; J1100; J1170; J1650; J1885; J2250; J2704; J3010